=== PATIENT | female | born 1980 | race Caucasian/White ===

== ENCOUNTER → 2016-06-29 | Outpatient (CLI) | payer OTHER, MEDICAID ==
[~2016-06-29] MED LIST: ACET50TA PO; IBUP80TA PO; LEVO25TA5 PO; PRENTAB52 PO
[2016-06-29 13:34] LABS: BASO # 0.1 K/mm3 (0.0-0.2); BASO % 0.5 % (0.0-1.0); EOS # 0.4 K/mm3 (0.0-0.50); EOS % 3.3 % (0.0-3.0); LARGE UNSTAINED CELL # 0.2 K/mm3 (0.0-0.4); LARGE UNSTAINED CELL % 1.4 % (0.0-4.0); LYMPH # 3.3 K/mm3 (1.5-4.5); LYMPH % 24.2 % (24.0-44.0); MEAN CORPUSCULAR HEMOGLOBIN 29.8 pg (27.0-33.0); MEAN CORPUSCULAR HGB CONC 31.6 g/dl (32.0-36.5); MEAN CORPUSCULAR VOLUME 94.3 fl (80.0-96.0); MONO # 0.7 K/mm3 (0.0-0.8); MONO % 4.8 % (0.0-5.0); NEUTROPHILS # 9.1 K/mm3 (1.8-7.7); NEUTROPHILS % 65.7 % (36.0-66.0); PLATELET COUNT, AUTOMATED 376 k/mm3 (150-450); RED CELL DISTRIBUTION WIDTH 13.5 % (11.5-14.5); WHITE BLOOD COUNT 13.8 K/mm3 (4.0-10.0)
[2016-06-29 13:57] LABS: HBsAg Prenatal NEGATIVE (NEGATIVE)
[2016-06-29 14:37] LABS: CONTROL LINE INT CTR LINE PRESENT; HIV SCRN NEGATIVE (NEGATIVE); HIV SCRN1 NEGATIVE (NEGATIVE)
== END ==
LOC: M SMT 09:28
PROVIDERS: ATTEND Specialist
DX: Z34.81 Encounter for supervision of other normal pregnancy, first trimester (principal)

== ENCOUNTER → 2016-07-16 | Outpatient (REF) | payer OTHER, MEDICAID | LOC: M LAB REF 17:08 | PROVIDERS: ATTEND Specialist | DX: Z34.82 Encounter for supervision of other normal pregnancy, second trimester (principal) ==

== ENCOUNTER → 2016-08-15 | Outpatient (CLI) | payer OTHER, MEDICAID ==
[2016-08-15 19:01] LABS: MEAN CORPUSCULAR HEMOGLOBIN 31.2 pg (27.0-33.0); MEAN CORPUSCULAR HGB CONC 32.9 g/dl (32.0-36.5); MEAN CORPUSCULAR VOLUME 94.9 fl (80.0-96.0); RED CELL DISTRIBUTION WIDTH 13.1 % (11.5-14.5); WHITE BLOOD COUNT 14.4 K/mm3 (4.0-10.0)
[2016-08-15 19:08] LABS: ALT/SGPT 17 U/L (12-78); AST/SGOT 9 U/L (15-37); BILIRUBIN,TOTAL 0.2 MG/DL (0.2-1.0); CREATININE FOR GFR 0.65 MG/DL (0.55-1.02); GLOMERULAR FILTRATION RATE > 60.0 (>60); URIC ACID 3.6 MG/DL (2.6-6.0)
[2016-08-15 20:01] LABS: CREATININE CLEARANCE, URINE 144.8 ML/MIN (75-115); CREATININE, SERUM 0.7 MG/DL (0.6-1.0)
== END ==
LOC: M WUC 12:28
PROVIDERS: ATTEND Advanced Practice Midwife
DX: Z34.81 Encounter for supervision of other normal pregnancy, first trimester (principal)

== ENCOUNTER → 2016-09-15 | Outpatient (CLI) | payer OTHER, MEDICAID ==
[2016-09-15 14:08] LABS: ALBUMIN 3.3 GM/DL (3.2-5.2); ALKALINE PHOSPHATASE 81 U/L (45-117); ALT/SGPT 13 U/L (12-78); AST/SGOT 13 U/L (15-37); BILIRUBIN,DIRECT < 0.1 MG/DL (0.0-0.2); BILIRUBIN,TOTAL 0.2 MG/DL (0.2-1.0); TOTAL PROTEIN 6.3 GM/DL (6.4-8.2)
== END ==
LOC: M SMT 09:35
PROVIDERS: ATTEND Advanced Practice Midwife
DX: R21 Rash and other nonspecific skin eruption (principal)

== ENCOUNTER → 2016-10-08 | Outpatient (CLI) | payer OTHER, MEDICAID ==
--- NOTE | 2016-10-09 05:57 | REP ---
Clinical: Anatomical evaluation. Comparison: None . Findings: Examination demonstrates a single live intrauterine in breech presentation. motion is identified by technologist. Placenta is noted anteriorly and grade zero without evidence for placenta previa or abruption; a posterior succenturiate lobe cannot be excluded. Amniotic fluid volume is normal. Cervix measures 4.1 cm in length and appears closed. No evidence for nuchal cord. Gestational age by LMP 18 weeks 4 days with PIO 03/07/2017 . Gestational age by current measurements 19 weeks 6 days with PIO 02/26/2017 . FHR equals 139 beats per minute. BPD 4.8 cm 20 weeks 4 days HC 17.7 cm 20 weeks 1 day AC 14.3 cm 19 weeks 4 days FL 3.2 cm 19 weeks 6 days HL 3.2 cm 20 weeks 5 days HC/AC ratio 1.24 Estimated weight 315 grams ( 96 percentile). Anatomical assessment demonstrates normal structures including cranium, choroid plexus, cavum, cerebellum/posterior fossa, facial features, lungs, diaphragm, stomach, cord insertion/three-vessel cord, bladder, and extremities. Limited evaluation of the heart, kidneys and spine noted. Impression: 1. Single live intrauterine in breech presentation demonstrating appropriate interval growth. 2. Anatomical limitations as described above may warrant reevaluation and follow-up. 3. Possible small posterior succenturiate lobe. Signed by Demetri Mitchell MD 10/09/2016 05:49 A
== END ==
LOC: M RAD 17:36
PROVIDERS: ATTEND Advanced Practice Midwife
DX: Z34.82 Encounter for supervision of other normal pregnancy, second trimester (principal); Z3A.18 18 weeks gestation of pregnancy

== ENCOUNTER → 2016-10-30 | Outpatient (CLI) | payer OTHER, MEDICAID ==
--- NOTE | 2016-10-30 12:37 | REP ---
ultrasound for follow-up of anatomy: A prior anatomy ultrasound dated 10/08 2016 did not adequately demonstrate the heart, kidneys or spine. Follow-up of these structures was performed on the study today. There is a single intrauterine gestation in a transverse lie with the head to the maternal left. There is motion and cardiac activity with the heart rate of 140 4 beats per minute. Placenta is anterior without previa or abruptio and is grade zero maturity. Subjectively amniotic fluid volume is normal. The cervix measures 4.9 cm length. By today's ultrasound the gestational age is 23 weeks 0 days with an PIO of 02/22/2017. Based on the first ultrasound this gestation gestational age is 23 weeks 0 days. weight is 561 grams (1 pound, 3 ounces). This is the 94th percentile for 21 weeks 5 days. On the study today the kidneys and spine are adequately demonstrated and are unremarkable. We are again unable to adequately demonstrate the four-chamber view of the heart. The cardiac right and left ventricular outflow tracts are imaged and are unremarkable. Signed by Mukund Duncan MD 10/30/2016 12:28 P
== END ==
LOC: M RAD 09:14
PROVIDERS: ATTEND Advanced Practice Midwife
DX: Z36 Encounter for antenatal screening of mother (principal)

== ENCOUNTER → 2016-11-30 | Outpatient (CLI) | payer OTHER, MEDICAID ==
[~2016-11-30] MED LIST changes: +GLYB25TA PO; +IBUP-1114 PO
[2016-11-30 14:44] LABS: MEAN CORPUSCULAR HEMOGLOBIN 31.2 pg (27.0-33.0); MEAN CORPUSCULAR HGB CONC 33.2 g/dl (32.0-36.5); MEAN CORPUSCULAR VOLUME 94.2 fl (80.0-96.0); RED CELL DISTRIBUTION WIDTH 14.1 % (11.5-14.5); WHITE BLOOD COUNT 12.8 K/mm3 (4.0-10.0)
--- NOTE | 2016-11-30 14:44 | REP ---
Clinical: Anatomical evaluation. Comparison: 10/30/2016 . Findings: Examination demonstrates a single live intrauterine in cephalic presentation. motion is identified by technologist. Placenta is noted the anterior and grade one without evidence for placenta previa or abruption. Amniotic fluid volume is normal. Cervix measures 4.5 cm in length and appears closed. No evidence for nuchal cord. Gestational age by LMP 26 weeks 1 day with PIO 03/07/2017 . Gestational age by current measurements 27 weeks 6 days with PIO 02/23/2017 . FHR equals 147 beats per minute. BPD 6.9 cm 27 weeks 5 days HC 25.6 cm 27 weeks 5 days AC 23.4 cm 27 weeks 5 days FL 5.0 cm 27 weeks 0 days HL 4.9 cm 28 weeks 5 days HC/AC ratio 1.09 Estimated weight 1082 grams ( 81st percentile). Anatomical assessment demonstrates normal structures including cranium, choroid plexus, cavum, cerebellum/posterior fossa, lungs, diaphragm, stomach, cord insertion/three-vessel cord, kidneys/bladder, spine, and extremities. Impression: Single live intrauterine in cephalic presentation demonstrating appropriate interval growth. With the exception of the four-chamber heart, anatomical assessment is complete and normal. Signed by Demetri Mitchell MD 11/30/2016 02:35 P
== END ==
LOC: M LAB 12:11
PROVIDERS: ATTEND Advanced Practice Midwife
DX: Z34.82 Encounter for supervision of other normal pregnancy, second trimester (principal)

== ENCOUNTER → 2016-12-10 | Outpatient (CLI) | payer OTHER, MEDICAID | LOC: M LAB 06:39 | PROVIDERS: ATTEND Advanced Practice Midwife | DX: Z34.82 Encounter for supervision of other normal pregnancy, second trimester (principal) ==

== ENCOUNTER → 2016-12-30 | Outpatient (CLI) | payer OTHER, MEDICAID ==
--- NOTE | 2016-12-31 06:26 | REP ---
Clinical: Growth evaluation. Additional diabetes. Comparison: 11/30/2016 . Findings: Examination demonstrates a single live intrauterine in cephalic presentation. motion is identified by technologist. Placenta is noted anteriorly and grade III without evidence for placenta previa or abruption. Suggestions for right lateral succenturiate lobe described by technologist. Amniotic fluid volume is normal. Cervix measures 6.1 cm in length and appears closed. No evidence for nuchal cord. Gestational age by LMP 30 weeks 3 days with PIO 03/07/2017 . Gestational age by current measurements 32 weeks 6 days with PIO 02/18/2017 . FHR equals 140 beats per minute. Estimated weight 2128 grams ( > 97% based on age by LMP ). Amniotic fluid index equals 20.0 cm. Umbilical cord SD ratio equals 3.04. Impression: 1. Single live intrauterine in cephalic presentation. 2. Estimated weight based on age by LMP is greater than 97 percentile and warrants further evaluation. 3. Cannot exclude right lateral succenturiate lobe. Signed by Demetri Mitchell MD 12/31/2016 06:18 A
== END ==
LOC: M RAD 09:09
PROVIDERS: ATTEND Advanced Practice Midwife
DX: Z36 Encounter for antenatal screening of mother (principal); Z3A.32 32 weeks gestation of pregnancy; O24.415 Gestational diabetes mellitus in pregnancy, controlled by oral hypoglycemic drugs

== ENCOUNTER → 2017-01-21 | Outpatient (CLI) | payer OTHER, MEDICAID ==
--- NOTE | 2017-01-21 14:59 | REP ---
OB ULTRASOUND: Real-time sonographic evaluation of the gravid uterus is performed utilizing transabdominal technique. There is single living intrauterine gestation, estimated gestational age 33 weeks 4 days, EDC 03/07/2017. Today's measurements indicate appropriate growth. Biometry and Growth: BPD 86 mm = 34 weeks 4 days, 65th percentile HC 309 mm = 34 weeks 3 days, 63rd percentile AC 311 mm = 35 weeks 0 days, 71st percentile FL 65 mm = 33 weeks 3 days, 47th percentile HC/AC ratio 0.99 within normal range. Estimated weight 2445 grams 63rd percentile. SEEN/GROSSLY UNREMARKABLE Lateral ventricles Yes Posterior fossa Yes Upper lip Yes Four-chamber heart No LVOT No RVOT No Stomach Yes Cord insertion No Three vessel cord Yes Kidneys Yes Bladder Yes Spine No Cervical length: Closed and measures 3.5 cm in length. heart rate: 138 beats per minute. position: Vertex. Placenta: Anterior and grade 3 with no previa or abruption. Suspect a posterior right succenturiate lobe of the placenta. Amniotic fluid: Within normal limits. PAO 14.8 within normal range of 8.2 to 24.7. S/D ratio 2.55 is within normal range. RI 0.61 is within normal range. Signed by Mukund Go MD 01/21/2017 03:19 P
== END ==
LOC: M RAD 11:23
PROVIDERS: ATTEND Advanced Practice Midwife
DX: Z36 Encounter for antenatal screening of mother (principal)

== ENCOUNTER 2017-01-29 11:31 | Outpatient (CLI) | payer OTHER, MEDICAID ==
[~2017-01-29] VITALS: Ht 152.4 cm; Wt 85.0 kg
[~2017-01-29 11:31] MED LIST changes: -GLYB25TA PO; -IBUP-1114 PO
[2017-01-29] MEDS ORDERED: LR 1,000 ML IV SCH (15:54)
[2017-01-29] MEDS ORDERED: LACTATED RINGER'S 1000 ML IV STA (15:54)
[2017-01-29 16:51] LABS: MEAN CORPUSCULAR HEMOGLOBIN 29.5 pg (27.0-33.0); MEAN CORPUSCULAR HGB CONC 33.7 g/dl (32.0-36.5); MEAN CORPUSCULAR VOLUME 87.6 fl (80.0-96.0); RED CELL DISTRIBUTION WIDTH 14.6 % (11.5-14.5); WHITE BLOOD COUNT 14.5 K/mm3 (4.0-10.0)
[2017-01-29 17:07] LABS: INR 0.86
== END 2017-01-29 18:11 | disposition home or self-care (01) ==
LOC: M LDO 11:31
PROVIDERS: ATTEND Obstetrics & Gynecology
DX: O99.89 Other specified diseases and conditions complicating pregnancy, childbirth and the puerperium (principal); W19.XXXA Unspecified fall, initial encounter; Z3A.34 34 weeks gestation of pregnancy; O24.415 Gestational diabetes mellitus in pregnancy, controlled by oral hypoglycemic drugs; Z88.5 Allergy status to narcotic agent; Z91.010 Allergy to peanuts; Z88.0 Allergy status to penicillin; Z91.018 Allergy to other foods; X58.XXXA Exposure to other specified factors, initial encounter; Y93.9 Activity, unspecified; Y92.9 Unspecified place or not applicable; Y99.8 Other external cause status

== ENCOUNTER 2017-02-03 16:38 | Inpatient (IN) | payer OTHER, MEDICAID ==
[2017-02-03] VITALS (9 sets, daily range): BP systolic 117–144; BP diastolic 62–100
[~2017-02-03] VITALS: Ht 154.9 cm; Wt 88.0 kg
[2017-02-03] MEDS ORDERED: GLYB25TA PO (16:59)
[2017-02-03] MEDS: BETAMETHASONE SOLUSPAN 6MG/ML INJ 5ML (J0702) IM SCH (17:55)
[2017-02-03 18:10] LABS: MEAN CORPUSCULAR HEMOGLOBIN 29.6 pg (27.0-33.0); MEAN CORPUSCULAR HGB CONC 33.8 g/dl (32.0-36.5); MEAN CORPUSCULAR VOLUME 87.6 fl (80.0-96.0); RED CELL DISTRIBUTION WIDTH 14.6 % (11.5-14.5); WHITE BLOOD COUNT 12.2 K/mm3 (4.0-10.0)
[2017-02-03 18:32] LABS: ALT/SGPT 16 U/L (12-78); AST/SGOT 19 U/L (15-37); BILIRUBIN,TOTAL 0.3 MG/DL (0.2-1.0); CREATININE FOR GFR 0.57 MG/DL (0.55-1.02); GLOMERULAR FILTRATION RATE > 60.0 (>60); URIC ACID 6.1 MG/DL (2.6-6.0)
--- NOTE | 2017-02-03 19:17 | HPE ---
DATE OF ADMISSION: 02/03/2017 Ladi is a 37-year-old 2, para 1-0-1-1 at 35-3/7 weeks gestation with an estimated date of confinement (EDC) of 03/07/2017 based on first trimester ultrasound. She presents to labor and delivery today after routine appointment in the office and was noted to have an elevated blood pressure and a complaint of a mild headache. She does deny epigastric pain and right upper quadrant pain as well as blurred vision. She does report some visual floaters. She denies vaginal bleeding, leakage of fluid, and regular painful contractions. Her fetus has been active. Her care was initiated at [facility] in the first trimester. course complicated by a history of pre-eclampsia, a history of gestational diabetes, A2, and a right succenturiate lobe noted on the placenta. OBSTETRICAL HISTORY: September 2014 at 38 weeks gestation she had a spontaneous vaginal delivery following an induction for pre-eclampsia at 38 weeks gestation of a 7-pound 6-ounce male. OBSTETRIC LABORATORIES: Blood type O positive, antibody screen negative, rubella immune, VDRL nonreactive. Urine culture no growth. Hepatitis B surface antigen negative, HIV negative, hepatitis C antibody negative, gonorrhea and chlamydia negative. Early 1-hour glucose tolerance test 97, repeat 164, 3-hour glucose tolerance test abnormal, fasting 95, 1-hour 185, 2-hour 178, 3-hour 114. Her group B streptococcus (GBS) is unknown at this time. She did undergo some baseline lab work for pre-eclampsia. A 24-hour urine on August 15 was 218.7 mg with normal AST, ALT, LDH. Uric acid was 3.6. PAST MEDICAL HISTORY: 1. Exercise-induced asthma. 2. Seasonal allergies. 3. Childhood varicella. FAMILY HISTORY: Diabetes, hypertension, heart disease, thyroid dysfunction, autism, vision issues. SURGERIES: 1. Appendectomy. 2. Tonsils and adenoids. 3. Kidney stone surgery. SOCIAL HISTORY: The patient is single; however, her partner is at bedside and supportive. She is a nonsmoker. Denies alcohol and drug use. No history of any sexually transmitted infections and denies history of abuse, physical, sexual, and emotional. ALLERGIES: Seasonal, CODEINE which causes hives, PENICILLIN, anaphylaxis. CURRENT MEDICATIONS: - glyburide 2.5 mg - vitamin - Claritin 10 mg OBJECTIVE: Temperature 98.1, pulse 76, respirations 16, blood pressures are mildly elevated at 130/100, 136/83, 139/89, 139/94, 132/70, 152/69. She is alert and oriented times three. No apparent distress, smiling and talkative. heart rate is 130 with moderate variability, positive accelerations observed. No decelerations observed. Her abdomen is gravid, cephalic presentation, which was confirmed by bedside ultrasound. Estimated weight of about 6 pounds. She is [place] approximately every 5-8 minutes. Sterile vaginal exam was deferred at this time. Her CBC came back with a hemoglobin of 11.5, hematocrit 34.1, platelets are 188. Pre-eclamptic profile: Creatinine 0.57, uric acid 6.1. AST 19, ALT 16. LDH 205. Her spot urine returned a result of 0.48. ASSESSMENT: Intrauterine at 35-3/7 weeks gestation. heart rate category 1 . Gestational hypertension. PLAN: Per consult with Dr. Jeremiah Degroot, admit the patient to labor and delivery. Betamethasone for lung maturity. GBS was obtained. Regular diet. Bathroom privileges. Saline lock. Will continue to observe the patient, monitor blood pressures overnight. Planned second betamethasone at 24 hours as ordered. Will consider at 12 hours if blood pressures become elevated requiring intervention. Potential for induction of labor following second betamethasone due to the patient's history of pre-eclampsia and diagnosis of gestational hypertension. I did review the plan with the patient. All of her questions were answered, and she does agree with the plan.
[2017-02-03] MEDS: ACETAMINOPHEN 500 MG TAB PO PRN (19:39)
[2017-02-03] MEDS ORDERED: glyBURIDE 2.5 MG TAB PO STA (19:47)
[2017-02-04] VITALS (38 sets, daily range): BP systolic 106–160; BP diastolic 54–92
[2017-02-04] MEDS: ACETAMINOPHEN 500 MG TAB PO PRN (05:25)
[2017-02-04] MEDS: DOCUSATE SODIUM 100 MG CAP PO PRN ×2 (06:24→21:48)
[2017-02-04] MEDS ORDERED: glyBURIDE 2.5 MG TAB PO SCH ×2 (08:15→17:30)
[2017-02-04] MEDS: BETAMETHASONE SOLUSPAN 6MG/ML INJ 5ML (J0702) IM SCH (17:44)
[2017-02-04] MEDS ORDERED: OXYTOCIN DRIP 30 UNITS in APPROPRIATE DILUENT 1 EA IV SCH (18:45)
[2017-02-04 19:37] LABS: MEAN CORPUSCULAR HEMOGLOBIN 28.8 pg (27.0-33.0); MEAN CORPUSCULAR HGB CONC 32.4 g/dl (32.0-36.5); MEAN CORPUSCULAR VOLUME 89.1 fl (80.0-96.0); RED CELL DISTRIBUTION WIDTH 14.8 % (11.5-14.5); WHITE BLOOD COUNT 17.7 K/mm3 (4.0-10.0)
[2017-02-04 19:46] LABS: ALBUMIN 2.5 GM/DL (3.2-5.2); ALBUMIN/GLOBULIN RATIO 0.83 (1.00-1.93); ALKALINE PHOSPHATASE 245 U/L (45-117); ALT/SGPT 18 U/L (12-78); ANION GAP 14 MEQ/L (8-16); AST/SGOT 16 U/L (15-37); BILIRUBIN,TOTAL 0.3 MG/DL (0.2-1.0); BLOOD UREA NITROGEN 15 MG/DL (7-18); CALCIUM LEVEL 8.8 MG/DL (8.5-10.1); CARBON DIOXIDE LEVEL 18 MEQ/L (21-32); CHLORIDE LEVEL 111 MEQ/L (98-107); CREATININE FOR GFR 0.66 MG/DL (0.55-1.02); GLOMERULAR FILTRATION RATE > 60.0 (>60); GLUCOSE, FASTING 124 MG/DL (70-105); POTASSIUM SERUM 4.2 MEQ/L (3.5-5.1); SODIUM LEVEL 143 MEQ/L (136-145); TOTAL PROTEIN 5.5 GM/DL (6.4-8.2); URIC ACID 6.1 MG/DL (2.6-6.0)
[2017-02-04] MEDS ORDERED: FENTANYL 2MCG/ML ROPIVACAINE 0.2% IN 0.9% NACL 200ML IVBAG As Ordered ONE (22:24)
[2017-02-04] MEDS ORDERED: diphenhydrAMINE INJ 50MG/ML VIAL (J1200) IV PRN (23:50)
[2017-02-04] MEDS ORDERED: REFRIGERATOR IV KEYS XX PRN (23:50)
[2017-02-04] MEDS ORDERED: FENTANYL/ROPIVACAINE/NACL BAG 200 ML EPIDURAL SCH (23:50)
[2017-02-04] MEDS ORDERED: NALOXONE INJ 0.4 MG/1 ML VIAL (J2310) IV PRN (23:50)
[2017-02-04] MEDS ORDERED: LACTATED RINGER'S 1000 ML IV PRN (23:50)
[2017-02-04] MEDS ORDERED: ONDANSETRON 4MG/2ML VIAL (J2405) IV PRN (23:50)
[2017-02-04] MEDS ORDERED: EPIDURAL/PCA KEYS XX PRN (23:50)
[2017-02-04] MEDS ORDERED: ePHEDrine SULFATE 25 MG/5 ML(5MG/ML) SYRINGE IV PRN (23:50)
[2017-02-04] MEDS ORDERED: EPIDURAL COMMENT XX SCH (23:50)
[2017-02-05] VITALS (49 sets, daily range): BP systolic 70–145; BP diastolic 35–81
[2017-02-05] MEDS: ACETAMINOPHEN 500 MG TAB PO PRN ×3 (02:31→19:29)
[2017-02-05] MEDS: ceFAZolin SOD 1 GM in D5W MINI-BAG PLUS 50 ML IV SCH ×2 (03:42→11:42)
[2017-02-05] MEDS: PRENATAL VITAMINS CHEWABLE TABLET PO SCH (09:00)
[2017-02-05] MEDS: DOCUSATE SODIUM 100 MG CAP PO PRN (09:53)
[2017-02-05] MEDS ORDERED: RHOGAM 300 MCG (1500 IU) INJ (J2790) IM SCH (14:15)
[2017-02-05] MEDS ORDERED: MOM 30ML SUSPENSION UDC PO PRN (14:15)
[2017-02-05] MEDS ORDERED: ANUSOL HC CREAM 30GM TOP PRN (14:15)
[2017-02-05] MEDS ORDERED: METHYLERGONOVINE MALEATE 0.2 MG TAB PO PRN (14:15)
[2017-02-05] MEDS ORDERED: MEASLES,MUMPS,RUBELLA VACCINE INJ (MMR-II) (90707) SC SCH (14:15)
[2017-02-05] MEDS ORDERED: DIBUCAINE 1% OINTMENT 30GM TOP PRN (14:15)
[2017-02-05 14:39] LABS: CORD GAS ABE V -4.3; CORD GAS HCO3 V 20.7 MEQ/L; CORD GAS O2 SAT V 77.5 %; CORD GAS PCO2 V 37.6 mmHg; CORD GAS PH V 7.358 UNITS; CORD GAS PO2 V 32.1 mmHg; CORD GAS SBC V 20.5 MEQ/L; CORD GAS TCO2 V 21.8 MEQ/L
[2017-02-05] MEDS ORDERED: miSOPROStol 200 MCG TAB (S0191) PR ONE (15:30)
[2017-02-05] MEDS: IBUPROFEN 800 MG TAB PO PRN (15:39)
--- NOTE | 2017-02-05 16:00 | DN ---
DATE: 02/05/2017 Induction of labor for pre-eclampsia and GDMA2. treated with Ancef for unknown group B streptococcus. Utilized epidural for labor coping. Pitocin induction of labor. Artificial rupture of membranes, clear fluid 0913. Fully dilated with strong bearing down efforts at 1318. Viable male delivered right occiput anterior (MAXIMUS) without difficulty at 13,27. Spontaneous respirations with stimulation. Transitioned on maternal abdomen. Cord doubly clamped and cut by father of the baby once pulsations ceased under my direction. scores were 8 and 8. Cord gases were obtained. Results are pending. Placenta Potter, intact with three-vessel cord at 1335. Succenturiate lobe was noted and intact. Fundus firmed with massage and IV Pitocin bolus. Estimated blood loss 50 mL. Perineum, cervix, and vagina inspected, intact. Sponge, sharp, and instrument count correct. weight 2782 grams, 6 pounds 2 ounces. Parents are naming their son Doc. was attended by Waleska Bolden, ATUL, and myself. ANNEMARIE
[2017-02-05] MEDS: DOCUSATE SODIUM 100 MG CAP PO SCH (19:28)
[2017-02-06] MEDS: IBUPROFEN 800 MG TAB PO PRN ×2 (02:07→16:17)
[2017-02-06 02:15] VITALS: BP 125/83
[2017-02-06 05:30] VITALS: BP 133/66
[2017-02-06] MEDS: ACETAMINOPHEN 500 MG TAB PO PRN (06:17)
[2017-02-06] MEDS: DOCUSATE SODIUM 100 MG CAP PO SCH ×2 (09:00→20:31)
[2017-02-06] MEDS: PRENATAL VITAMINS CHEWABLE TABLET PO SCH (09:00)
[2017-02-06 10:15] VITALS: BP 124/67
[2017-02-06 14:04] VITALS: BP 130/69
[2017-02-06 18:03] VITALS: BP 130/76
[2017-02-06 22:35] VITALS: BP 133/63
[2017-02-07 02:10] VITALS: BP 135/67
[2017-02-07] MEDS: IBUPROFEN 800 MG TAB PO PRN (02:59)
[2017-02-07] MEDS: ACETAMINOPHEN 500 MG TAB PO PRN (04:56)
[2017-02-07 05:35] VITALS: BP 135/78
[2017-02-07] MEDS ORDERED: IBUP-1114 PO (07:27)
[2017-02-07] MEDS ORDERED: ACET50TA PO (07:27)
[2017-02-07] MEDS: DOCUSATE SODIUM 100 MG CAP PO SCH (08:10)
[2017-02-07] MEDS: PRENATAL VITAMINS CHEWABLE TABLET PO SCH (08:10)
[2017-02-07 10:00] VITALS: BP 131/71
== END 2017-02-07 12:30 | disposition home or self-care (01) | DRG 775 ==
LOC: M LDI 16:38 → M OBS 02-05 16:22
PROVIDERS: ADMIT Advanced Practice Midwife; ATTEND Advanced Practice Midwife
PROC: 3E033VJ Introduction of Other Hormone into Peripheral Vein, Percutaneous Approach (ICD-10-PCS; 2017-02-03)
PROC: 10E0XZZ Delivery of Products of Conception, External Approach (ICD-10-PCS; principal; 2017-02-05)
PROC: 10907ZC Drainage of Amniotic Fluid, Therapeutic from Products of Conception, Via Natural or Artificial Opening (ICD-10-PCS; 2017-02-05)
DX: O14.14 Severe pre-eclampsia complicating childbirth (principal); Z37.0 Single live birth; Z3A.35 35 weeks gestation of pregnancy; O43.193 Other malformation of placenta, third trimester; O09.523 Supervision of elderly multigravida, third trimester

== ENCOUNTER → 2017-03-18 | Outpatient (CLI) | payer OTHER, MEDICAID ==
[~2017-03-18] MED LIST changes: +GLYB25TA PO; +IBUP-1114 PO
== END ==
LOC: M LAB 07:22
PROVIDERS: ATTEND Advanced Practice Midwife
DX: O24.415 Gestational diabetes mellitus in pregnancy, controlled by oral hypoglycemic drugs (principal)

== ENCOUNTER 2017-08-18 16:32 | Emergency (ER) | payer OTHER, MEDICAID ==
[2017-08-18] MEDS: KETOROLAC 60 MG/2 ML VIAL (J1885) IM (18:52)
== END 2017-08-18 19:25 | disposition home or self-care (01) ==
LOC: M ED 16:32
DX: S13.9XXA Sprain of joints and ligaments of unspecified parts of neck, initial encounter (principal); S43.402A Unspecified sprain of left shoulder joint, initial encounter; M25.512 Pain in left shoulder; X50.0XXA Overexertion from strenuous movement or load, initial encounter; Y92.89 Other specified places as the place of occurrence of the external cause; I10 Essential (primary) hypertension; M19.90 Unspecified osteoarthritis, unspecified site; Z87.442 Personal history of urinary calculi; Z88.0 Allergy status to penicillin; Z88.5 Allergy status to narcotic agent; Z91.010 Allergy to peanuts; Z91.018 Allergy to other foods; Z79.899 Other long term (current) drug therapy
CPT/HCPCS: J1885

== ENCOUNTER → 2018-06-19 | Outpatient (REF) | payer OTHER, MEDICAID ==
[~2018-06-19] MED LIST changes: -ACET50TA PO; +DICL75TA PO; +HUMI40KI2; +MAPA500T2 PO; +MULT1TAB18 PO; +ZANA4TAB PO
== END ==
LOC: M SFHCLERA 14:58
PROVIDERS: ATTEND Physician Assistant
DX: R10.9 Unspecified abdominal pain (principal)

== ENCOUNTER → 2018-07-05 | Outpatient (REF) | payer OTHER, MEDICAID | LOC: M SFHCLERA 20:19 | PROVIDERS: ATTEND Nurse Practitioner Family | DX: J02.9 Acute pharyngitis, unspecified (principal) ==

== ENCOUNTER → 2018-09-28 | Outpatient (REF) | payer OTHER, MEDICAID | LOC: M SFHCLERA 11:21 | PROVIDERS: ATTEND Physician Assistant | DX: R50.9 Fever, unspecified (principal) ==

== ENCOUNTER 2018-12-17 21:06 | Emergency (ER) | payer OTHER, MEDICAID ==
[~2018-12-17] VITALS: Ht 154.9 cm; Wt 95.5 kg
[2018-12-17] MEDS ORDERED: AMIT10TA (21:18)
[2018-12-17] MEDS ORDERED: IBUP80TA (21:18)
[2018-12-17] MEDS ORDERED: TOPI100T9 (21:18)
[2018-12-17] MEDS ORDERED: ZOLM5TAB2 (21:18)
[2018-12-17 21:43] LABS: HEMATOCRIT 41.6 % (36.0-47.0); HEMOGLOBIN 13.5 g/dl (12.0-15.5); MEAN CORPUSCULAR HGB CONC 32.5 g/dl (32.0-36.5); MEAN CORPUSCULAR VOLUME 95.6 fl (80.0-96.0); PLATELET COUNT, AUTOMATED 349 10^3/uL (150-450); RED BLOOD COUNT 4.35 10^6/uL (4.00-5.40)
[2018-12-17 21:48] LABS: WHITE BLOOD COUNT 13.8 10^3/uL (4.0-10.0)
[2018-12-17 22:08] LABS: HCG, SERUM QUALITATIVE NEGATIVE (NEGATIVE)
[2018-12-17 22:12] LABS: BASOPHILS 1 % (0-4); EOSINOPHILS 2 % (0-5); LYMPHOCYTES 46 % (16-52); MONOCYTES 4 % (0-8); NEUTROPHILS 47 % (35-75)
[2018-12-17 22:13] LABS: PLATELET ESTIMATE NORMAL (NORMAL)
[2018-12-17 22:15] LABS: ALBUMIN 3.8 GM/DL (3.2-5.2); ALT/SGPT 17 U/L (12-78); BILIRUBIN,DIRECT < 0.1 MG/DL (0.0-0.2); BILIRUBIN,TOTAL 0.3 MG/DL (0.2-1.0); BLOOD UREA NITROGEN 13 MG/DL (7-18); CALCIUM LEVEL 8.8 MG/DL (8.5-10.1); CARBON DIOXIDE LEVEL 25 MEQ/L (21-32); CHLORIDE LEVEL 109 MEQ/L (98-107); CREATININE FOR GFR 0.93 MG/DL (0.55-1.30); GLOMERULAR FILTRATION RATE > 60.0 (>60); GLUCOSE, FASTING 107 MG/DL (70-100); LIPASE 180 U/L (73-393); POTASSIUM SERUM 3.7 MEQ/L (3.5-5.1); SODIUM LEVEL 143 MEQ/L (136-145); TOTAL PROTEIN 7.3 GM/DL (6.4-8.2)
[2018-12-17] MEDS ORDERED: KETOROLAC 30 MG/ML VIAL (J1885) IV ONE (23:00)
--- NOTE | 2018-12-18 00:28 | REPVR ---
EXAM: CT Abdomen and Pelvis Without Contrast EXAM DATE/TIME: 12/17/2018 10:56 PM CLINICAL HISTORY: 38 years old, female; Abdominal pain; Flank; Right; Additional info: R flank pain, R/O stone TECHNIQUE: Imaging protocol: Axial computed tomography images of the abdomen and pelvis without contrast. Coronal and sagittal reformatted images were created and reviewed. Radiation optimization: All CT scans at this facility use at least one of these dose optimization techniques: automated exposure control; mA and/or kV adjustment per patient size (includes targeted exams where dose is matched to clinical indication); or iterative reconstruction. COMPARISON: CT ABD PELVIS W/O CONTRAST 05/04/2016 12:32 PM FINDINGS: Liver: Indeterminate 1.9 x 1.8 cm low-density lesion in the right hepatic lobe, likely a cyst or hemangioma. Gallbladder and bile ducts: No radiodense gallstones. No biliary ductal dilatation. Pancreas: Unremarkable. Spleen: Unremarkable. Adrenals: Unremarkable. Kidneys and ureters: Nonobstructing left renal calculus. No hydronephrosis. Stomach and bowel: Moderate amount of retained stool in the colon. No obstruction. No bowel wall thickening. No pneumatosis. Appendix: Findings suggestive of prior appendectomy. Intraperitoneal space: Trace nonspecific free pelvic fluid, likely physiologic. No organized fluid collection. No free air. Vasculature: Unremarkable. No aneurysm. Lymph nodes: No pathologically enlarged lymph nodes. Bladder: Unremarkable. Reproductive: Unremarkable. Bones/joints: No acute osseous abnormality. Soft tissues: Small, fat-containing umbilical hernia. IMPRESSION: 1. Limited noncontrast examination without CT evidence of acute intra-abdominal or pelvic pathology. 2. Additional findings, as above. Electronically signed by: Messi Guthrie On 12/18/2018 00:28:17 AM
[2018-12-18 00:57] VITALS: BP 137/83
== END 2018-12-18 00:58 | disposition home or self-care (01) ==
LOC: M ED 21:06
DX: K59.00 Constipation, unspecified (principal); K42.9 Umbilical hernia without obstruction or gangrene; K76.9 Liver disease, unspecified; N20.0 Calculus of kidney; G43.909 Migraine, unspecified, not intractable, without status migrainosus; G47.30 Sleep apnea, unspecified; Z87.442 Personal history of urinary calculi; H20.00 Unspecified acute and subacute iridocyclitis; L40.52 Psoriatic arthritis mutilans; Z79.899 Other long term (current) drug therapy; Z91.010 Allergy to peanuts; Z88.0 Allergy status to penicillin; Z88.5 Allergy status to narcotic agent
CPT/HCPCS: 74176; 80048; 80076; 81001; 83690; 84703; 85025; 99283; J1885

== ENCOUNTER → 2019-04-01 | Outpatient (REF) | payer BC ==
[~2019-04-01] MED LIST changes: +AMIT10TA; +IBUP80TA; +TOPI100T9; +ZOLM5TAB14
== END ==
LOC: M SFHCLERA 17:58
PROVIDERS: ATTEND Nurse Practitioner Family
DX: J02.9 Acute pharyngitis, unspecified (principal)

== ENCOUNTER → 2019-12-26 | Outpatient (CLI) | payer OTHER ==
[2020-01-23 02:38] LABS: BASO # 0.1 10^3/uL (0.0-0.2); BASO % 0.9 % (0.0-1.0); EOS # 0.7 10^3/uL (0.0-0.5); EOS % 5.5 % (0.0-3.0); HEMATOCRIT 43.4 % (36.0-47.0); HEMOGLOBIN 13.6 g/dl (12.0-15.5); LYMPH # 5.1 10^3/uL (1.5-5.0); LYMPH % 41.8 % (24.0-44.0); MEAN CORPUSCULAR HEMOGLOBIN 29.6 pg (27.0-33.0); MEAN CORPUSCULAR HGB CONC 31.3 g/dl (32.0-36.5); MEAN CORPUSCULAR VOLUME 94.6 fl (80.0-96.0); MONO # 0.7 10^3/uL (0.0-0.8); NEUTROPHILS # 5.5 10^3/uL (1.5-8.5); NEUTROPHILS % 45.3 % (36.0-66.0); PLATELET COUNT, AUTOMATED 335 10^3/uL (150-450); RED BLOOD COUNT 4.59 10^6/uL (4.00-5.40); WHITE BLOOD COUNT 12.1 10^3/uL (4.0-10.0)
[2020-03-18 14:09] LABS: GLUCOSE, FASTING SEE SEPARATE REPORT
== END ==
LOC: M LAB 07:13
PROVIDERS: ATTEND Nurse Practitioner Family
DX: L40.59 Other psoriatic arthropathy (principal)

== ENCOUNTER → 2020-01-12 | Outpatient (CLI) | payer OTHER ==
[2020-02-29 22:01] LABS: BASO # 0.2 10^3/uL (0.0-0.2); BASO % 0.8 % (0.0-1.0); EOS # 0.4 10^3/uL (0.0-0.5); EOS % 2.1 % (0.0-3.0); HEMATOCRIT 41.9 % (36.0-47.0); HEMOGLOBIN 13.4 g/dl (12.0-15.5); LYMPH % 36.6 % (24.0-44.0); MONO # 1.3 10^3/uL (0.0-0.8); MONO % 6.5 % (0.0-5.0); NEUTROPHILS # 9.9 10^3/uL (1.5-8.5); NEUTROPHILS % 51.9 % (36.0-66.0); PLATELET COUNT, AUTOMATED 368 10^3/uL (150-450); RED BLOOD COUNT 4.32 10^6/uL (4.00-5.40); WHITE BLOOD COUNT 19.2 10^3/uL (4.0-10.0)
[2020-03-10 23:32] LABS: CALCIUM LEVEL 9.9 MG/DL (8.5-10.1); CREATININE FOR GFR 1.09 MG/DL (0.55-1.30); GLOMERULAR FILTRATION RATE 59.8 (>60); POTASSIUM SERUM 4.3 MEQ/L (3.5-5.1)
== END ==
LOC: M LAB 09:20
PROVIDERS: ATTEND Nurse Practitioner Family
DX: L40.59 Other psoriatic arthropathy (principal); Z79.899 Other long term (current) drug therapy

== ENCOUNTER 2020-03-22 13:19 | Outpatient (CLI) | payer OTHER ==
[2020-03-22] VITALS (7 sets, daily range): BP systolic 132–148; BP diastolic 76–83
[~2020-03-22] VITALS: Ht 154.9 cm; Wt 103.6 kg
[~2020-03-22 13:19] MED LIST changes: +ACETAMINOPHEN TAB 650MG DOSE (2X325MG) PO PRN; +diphenhydrAMINE 50MG/ML VIAL (J1200) IV PRN; +methylPREDNISolone 125MG 2ML VIAL IV PRN
[2020-03-22] MEDS ORDERED: INFLIXIMAB BIOSIMILAR 500 MG in NS 200 ML IV ONE (13:30)
[2020-03-22 14:16] LABS: HEMOGLOBIN 13.7 g/dl (12.0-15.5); MEAN CORPUSCULAR HEMOGLOBIN 29.7 pg (27.0-33.0); MEAN CORPUSCULAR HGB CONC 31.9 g/dl (32.0-36.5); MEAN CORPUSCULAR VOLUME 93.3 fl (80.0-96.0); PLATELET COUNT, AUTOMATED 364 10^3/uL (150-450); RED BLOOD COUNT 4.61 10^6/uL (4.00-5.40); WHITE BLOOD COUNT 18.5 10^3/uL (4.0-10.0)
[2020-03-22 14:37] LABS: BLOOD UREA NITROGEN 18 MG/DL (7-18); CARBON DIOXIDE LEVEL 23 MEQ/L (21-32); CHLORIDE LEVEL 110 MEQ/L (98-107); CREATININE FOR GFR 1.04 MG/DL (0.55-1.30); GLOMERULAR FILTRATION RATE > 60.0 (>60); GLUCOSE, FASTING 120 MG/DL (70-100); POTASSIUM SERUM 4.1 MEQ/L (3.5-5.1); SODIUM LEVEL 139 MEQ/L (136-145)
[2020-03-22 14:38] LABS: ALBUMIN 3.8 GM/DL (3.2-5.2); ALT/SGPT 25 U/L (12-78); BILIRUBIN,TOTAL 0.2 MG/DL (0.2-1.0); CALCIUM LEVEL 9.3 MG/DL (8.5-10.1); TOTAL PROTEIN 7.1 GM/DL (6.4-8.2)
[2020-03-22 14:39] LABS: ERYTHROCYTE SEDIMENTATION RATE 9 mm/hr (0-20)
== END 2020-03-22 17:15 | disposition home or self-care (01) ==
LOC: M INFU 13:19
PROVIDERS: ATTEND Internal Medicine
DX: L40.59 Other psoriatic arthropathy (principal)
CPT/HCPCS: 36415; 80053; 85027; 85652; 86140; 96413; 96415; Q5103

== ENCOUNTER 2020-04-05 13:32 | Outpatient (CLI) | payer OTHER ==
[2020-04-05] VITALS (9 sets, daily range): BP systolic 107–140; BP diastolic 66–89
[~2020-04-05] VITALS: Ht 154.9 cm; Wt 103.4 kg
[~2020-04-05 13:32] MED LIST changes: +ACETAMINOPHEN 650MG PO PRIOR TO INFUSION PO PRN; -ACETAMINOPHEN TAB 650MG DOSE (2X325MG) PO PRN; +INFLIXIMAB BIOSIMILAR 500 MG in NS 200 ML IV ONE; +NS 1,000 ML IV SCH; +diphenhydrAMINE 25MG IV PRIOR TO INFUSION IV PRN; -diphenhydrAMINE 50MG/ML VIAL (J1200) IV PRN
[2020-04-05 14:07] LABS: HEMATOCRIT 39.3 % (36.0-47.0); HEMOGLOBIN 12.6 g/dl (12.0-15.5); MEAN CORPUSCULAR HEMOGLOBIN 30.1 pg (27.0-33.0); MEAN CORPUSCULAR HGB CONC 32.1 g/dl (32.0-36.5); PLATELET COUNT, AUTOMATED 313 10^3/uL (150-450); RED BLOOD COUNT 4.18 10^6/uL (4.00-5.40); WHITE BLOOD COUNT 11.2 10^3/uL (4.0-10.0)
[2020-04-05 14:39] LABS: ERYTHROCYTE SEDIMENTATION RATE 20 mm/hr (0-20)
[2020-04-05 14:45] LABS: ALBUMIN 3.6 GM/DL (3.2-5.2); ALT/SGPT 21 U/L (12-78); BILIRUBIN,TOTAL 0.3 MG/DL (0.2-1.0); BLOOD UREA NITROGEN 17 MG/DL (7-18); CARBON DIOXIDE LEVEL 22 MEQ/L (21-32); CHLORIDE LEVEL 111 MEQ/L (98-107); GLOMERULAR FILTRATION RATE > 60.0 (>60); GLUCOSE, FASTING 93 MG/DL (70-100); POTASSIUM SERUM 3.5 MEQ/L (3.5-5.1); SODIUM LEVEL 140 MEQ/L (136-145); TOTAL PROTEIN 6.6 GM/DL (6.4-8.2)
== END 2020-04-05 17:00 | disposition home or self-care (01) ==
LOC: M INFU 13:32
PROVIDERS: ATTEND Internal Medicine
DX: L40.59 Other psoriatic arthropathy (principal); Z88.0 Allergy status to penicillin; Z88.6 Allergy status to analgesic agent; Z91.010 Allergy to peanuts
CPT/HCPCS: 36592; 80053; 85027; 85652; 86140; 96365; 96366; Q5103

== ENCOUNTER 2020-05-03 13:43 | Outpatient (CLI) | payer OTHER ==
[~2020-05-03] VITALS: Ht 154.9 cm; Wt 103.4 kg
[~2020-05-03 13:43] MED LIST changes: -ACETAMINOPHEN 650MG PO PRIOR TO INFUSION PO PRN; +ACETAMINOPHEN TAB 650MG DOSE (2X325MG) PO ONE; -NS 1,000 ML IV SCH; -diphenhydrAMINE 25MG IV PRIOR TO INFUSION IV PRN; +diphenhydrAMINE 50MG/ML VIAL (J1200) IV ONE; +methylPREDNISolone 125MG 2ML VIAL IV ONE; -methylPREDNISolone 125MG 2ML VIAL IV PRN
[2020-05-03 13:45] VITALS: BP 134/83
[2020-05-03 14:35] VITALS: BP 136/68
[2020-05-03 14:36] LABS: MEAN CORPUSCULAR HEMOGLOBIN 29.9 pg (27.0-33.0); MEAN CORPUSCULAR HGB CONC 32.5 g/dl (32.0-36.5); PLATELET COUNT, AUTOMATED 333 10^3/uL (150-450); RED BLOOD COUNT 4.35 10^6/uL (4.00-5.40); WHITE BLOOD COUNT 12.4 10^3/uL (4.0-10.0)
[2020-05-03 14:50] VITALS: BP 132/72
[2020-05-03 15:04] LABS: ALBUMIN 3.8 GM/DL (3.2-5.2); ALT/SGPT 20 U/L (12-78); BILIRUBIN,TOTAL 0.2 MG/DL (0.2-1.0); BLOOD UREA NITROGEN 15 MG/DL (7-18); CALCIUM LEVEL 8.9 MG/DL (8.5-10.1); CARBON DIOXIDE LEVEL 23 MEQ/L (21-32); CHLORIDE LEVEL 112 MEQ/L (98-107); CREATININE FOR GFR 0.91 MG/DL (0.55-1.30); GLOMERULAR FILTRATION RATE > 60.0 (>60); GLUCOSE, FASTING 110 MG/DL (70-100); POTASSIUM SERUM 3.6 MEQ/L (3.5-5.1); SODIUM LEVEL 140 MEQ/L (136-145); TOTAL PROTEIN 6.9 GM/DL (6.4-8.2)
[2020-05-03 15:05] VITALS: BP 127/74
[2020-05-03 15:59] LABS: ERYTHROCYTE SEDIMENTATION RATE 13 mm/hr (0-20)
[2020-05-03 16:00] VITALS: BP 145/70
[2020-05-03 16:36] VITALS: BP 133/84
== END 2020-05-03 16:40 | disposition home or self-care (01) ==
LOC: M INFU 13:43
PROVIDERS: ATTEND Internal Medicine
DX: L40.59 Other psoriatic arthropathy (principal); Z88.0 Allergy status to penicillin; Z88.6 Allergy status to analgesic agent; Z91.010 Allergy to peanuts
CPT/HCPCS: 36592; 80053; 85027; 85652; 86140; 96365; 96366; Q5103

== ENCOUNTER 2020-08-23 13:30 | Outpatient (CLI) | payer OTHER ==
[~2020-08-23] VITALS: Ht 154.9 cm; Wt 103.4 kg
[~2020-08-23 13:30] MED LIST changes: +ACETAMINOPHEN 650MG ER TAB (TYLENOL ARTHRITIS) PO ONE; -ACETAMINOPHEN TAB 650MG DOSE (2X325MG) PO ONE; -AMIT10TA; +AMIT10TA7; +GLYB2.5T7 PO; -GLYB25TA PO; -diphenhydrAMINE 50MG/ML VIAL (J1200) IV ONE; +diphenhydrAMINE 50MG/ML VIAL (J1200) IV PRN; -methylPREDNISolone 125MG 2ML VIAL IV ONE; +methylPREDNISolone 125MG 2ML VIAL IV PRN
[2020-08-23 13:41] VITALS: BP 139/84
[2020-08-23 13:51] VITALS: BP 139/84
[2020-08-23 13:59] LABS: HEMATOCRIT 40.3 % (36.0-47.0); HEMOGLOBIN 13.4 g/dl (12.0-15.5); MEAN CORPUSCULAR HEMOGLOBIN 30.5 pg (27.0-33.0); MEAN CORPUSCULAR HGB CONC 33.3 g/dl (32.0-36.5); MEAN CORPUSCULAR VOLUME 91.8 fl (80.0-96.0); PLATELET COUNT, AUTOMATED 339 10^3/uL (150-450); RED BLOOD COUNT 4.39 10^6/uL (4.00-5.40); WHITE BLOOD COUNT 12.2 10^3/uL (4.0-10.0)
[2020-08-23 14:31] LABS: ERYTHROCYTE SEDIMENTATION RATE 21 mm/hr (0-20)
[2020-08-23 14:33] LABS: ALBUMIN 3.9 GM/DL (3.2-5.2); ALT/SGPT 32 U/L (12-78); BILIRUBIN,TOTAL 0.2 MG/DL (0.2-1.0); BLOOD UREA NITROGEN 15 MG/DL (7-18); C REACTIVE PROTEIN QUANTITATIV 0.59 MG/DL (0.00-0.30); CALCIUM LEVEL 9.3 MG/DL (8.5-10.1); CARBON DIOXIDE LEVEL 24 MEQ/L (21-32); CHLORIDE LEVEL 112 MEQ/L (98-107); CREATININE FOR GFR 0.83 MG/DL (0.55-1.30); GLOMERULAR FILTRATION RATE > 60.0 (>60); GLUCOSE, FASTING 94 MG/DL (70-100); POTASSIUM SERUM 3.6 MEQ/L (3.5-5.1); SODIUM LEVEL 142 MEQ/L (136-145); TOTAL PROTEIN 7.2 GM/DL (6.4-8.2)
[2020-08-23 14:55] VITALS: BP 132/80
[2020-08-23 15:10] VITALS: BP 128/74
[2020-08-23 15:58] VITALS: BP 131/75
[2020-08-23 16:44] VITALS: BP 132/73
== END 2020-08-23 16:45 | disposition home or self-care (01) ==
LOC: M INFU 13:30
PROVIDERS: ATTEND Internal Medicine
DX: L40.59 Other psoriatic arthropathy (principal); Z88.0 Allergy status to penicillin; Z88.6 Allergy status to analgesic agent; Z91.010 Allergy to peanuts
CPT/HCPCS: 36592; 80053; 85027; 85652; 86140; 96365; 96366; Q5103

== ENCOUNTER → 2020-09-03 | Outpatient (CLI) | payer OTHER ==
[~2020-09-03] MED LIST changes: -ACETAMINOPHEN 650MG ER TAB (TYLENOL ARTHRITIS) PO ONE; -INFLIXIMAB BIOSIMILAR 500 MG in NS 200 ML IV ONE; -diphenhydrAMINE 50MG/ML VIAL (J1200) IV PRN; -methylPREDNISolone 125MG 2ML VIAL IV PRN
[2020-09-03 12:48] LABS: FREE T3 2.5 PG/ML (2.2-4.0); FREE T4 0.79 NG/DL (0.76-1.46); THYROID PEROXIDASE ANTIBODY < 28.0 U/ML (<60.0)
[2020-09-04 10:08] LABS: THRYOGLOBULIN ANTIBODIES (ATA) < 1.0 IU/mL (0.0-0.9); THYROGLOBULIN QUANTITATIVE 15.2 ng/mL (1.5-38.5)
== END ==
LOC: M LAB 11:12
PROVIDERS: ATTEND Physician Assistant
DX: R53.83 Other fatigue (principal); G47.33 Obstructive sleep apnea (adult) (pediatric); R13.10 Dysphagia, unspecified

== ENCOUNTER → 2020-09-20 | Outpatient (CLI) | payer OTHER ==
[~2020-09-20] MED LIST changes: +E-Z-GAS II EFFERVESCENT PACKET (SODIUM BICARB./CITRIC ACID/SIMETHICONE) As Ordered ONE; +E-Z-HD 98% w/w 340GM SUSP BTL As Ordered ONE; +E-Z-PAQUE 96% w/w SUSP 176GM BTL As Ordered ONE
--- NOTE | 2020-09-20 15:52 | REP ---
INDICATION: GASTRO-ESOPHAGEAL REFLUX DISEASE W/O ESOPHAGITIS. COMPARISON: None TECHNIQUE: This procedure was performed by Swati Avendano [facility], under the direct supervision of Dr. Driscoll. Images were reviewed with Dr. Driscoll prior to dictation. Liquid barium and gas producing crystals were given in the erect position, as well as liquid barium in the prone oblique position in order to perform a double contrast esophagram examination. FINDINGS: A single view PA chest x-ray is submitted as a pipe maker film. The superior mediastinal structures are midline. The heart size is within normal limits. The lungs are clear. The oral and pharyngeal stages of deglutition were unremarkable. Esophageal transport is prompt and efficient and there is no evidence of esophagitis, stricture, or mucosal ring. There is no evidence of a hiatal hernia. There was no gastroesophageal reflux noted . IMPRESSION: Unremarkable esophagram. 0.2 minutes of fluoroscopy time was utilized for this procedure. Some fluoroscopic images are performed with last image hold technology. These images require no additional radiation. <Electronically signed by Swati Avendaon > 09/20/20 1430 <Electronically signed by Tay Driscoll > 09/20/20 0098
== END ==
LOC: M RAD 09:33
PROVIDERS: ATTEND Otolaryngology
DX: K21.9 Gastro-esophageal reflux disease without esophagitis (principal)

== ENCOUNTER 2020-10-18 13:30 | Outpatient (CLI) | payer OTHER ==
[~2020-10-18] VITALS: Ht 154.9 cm; Wt 103.4 kg
[~2020-10-18 13:30] MED LIST changes: +ACETAMINOPHEN TAB 650MG DOSE (2X325MG) PO PRN; -E-Z-GAS II EFFERVESCENT PACKET (SODIUM BICARB./CITRIC ACID/SIMETHICONE) As Ordered ONE; -E-Z-HD 98% w/w 340GM SUSP BTL As Ordered ONE; -E-Z-PAQUE 96% w/w SUSP 176GM BTL As Ordered ONE; +INFLIXIMAB BIOSIMILAR 500 MG in NS 200 ML IV ONE; +diphenhydrAMINE 50MG/ML VIAL (J1200) IV PRN; +methylPREDNISolone 125MG 2ML VIAL IV PRN
[2020-10-18 13:54] LABS: HEMATOCRIT 40.3 % (36.0-47.0); HEMOGLOBIN 13.1 g/dl (12.0-15.5); MEAN CORPUSCULAR HEMOGLOBIN 30.2 pg (27.0-33.0); MEAN CORPUSCULAR HGB CONC 32.5 g/dl (32.0-36.5); MEAN CORPUSCULAR VOLUME 92.9 fl (80.0-96.0); PLATELET COUNT, AUTOMATED 340 10^3/uL (150-450); RED BLOOD COUNT 4.34 10^6/uL (4.00-5.40); WHITE BLOOD COUNT 13.5 10^3/uL (4.0-10.0)
[2020-10-18 14:10] VITALS: BP 136/84
[2020-10-18 14:24] LABS: ALBUMIN 3.8 GM/DL (3.2-5.2); ALT/SGPT 38 U/L (12-78); BILIRUBIN,TOTAL 0.2 MG/DL (0.2-1.0); BLOOD UREA NITROGEN 16 MG/DL (7-18); C REACTIVE PROTEIN QUANTITATIV 0.34 MG/DL (0.00-0.30); CALCIUM LEVEL 9.1 MG/DL (8.5-10.1); CARBON DIOXIDE LEVEL 22 MEQ/L (21-32); CHLORIDE LEVEL 113 MEQ/L (98-107); CREATININE FOR GFR 0.77 MG/DL (0.55-1.30); GLOMERULAR FILTRATION RATE > 60.0 (>60); GLUCOSE, FASTING 84 MG/DL (70-100); POTASSIUM SERUM 3.5 MEQ/L (3.5-5.1); SODIUM LEVEL 142 MEQ/L (136-145)
[2020-10-18 14:25] VITALS: BP 132/88
[2020-10-18 14:29] LABS: ERYTHROCYTE SEDIMENTATION RATE 17 mm/hr (0-20)
[2020-10-18 15:09] VITALS: BP 139/72
== END 2020-10-18 15:20 | disposition home or self-care (01) ==
LOC: M INFU 13:30
PROVIDERS: ATTEND Internal Medicine
DX: L40.59 Other psoriatic arthropathy (principal); Z88.0 Allergy status to penicillin; Z88.6 Allergy status to analgesic agent; Z91.010 Allergy to peanuts
CPT/HCPCS: 36592; 80053; 85027; 85652; 86140; 96365; Q5103

== ENCOUNTER 2020-12-13 11:01 | Outpatient (CLI) | payer OTHER, SELFPAY ==
[~2020-12-13] VITALS: Ht 160 cm; Wt 103.4 kg
[2020-12-13 11:41] LABS: HEMATOCRIT 42.7 % (36.0-47.0); HEMOGLOBIN 13.5 g/dl (12.0-15.5); MEAN CORPUSCULAR HEMOGLOBIN 29.5 pg (27.0-33.0); MEAN CORPUSCULAR HGB CONC 31.6 g/dl (32.0-36.5); MEAN CORPUSCULAR VOLUME 93.4 fl (80.0-96.0); PLATELET COUNT, AUTOMATED 300 10^3/uL (150-450); RED BLOOD COUNT 4.57 10^6/uL (4.00-5.40)
[2020-12-13 12:03] VITALS: BP 128/68
[2020-12-13 12:08] LABS: ERYTHROCYTE SEDIMENTATION RATE 16 mm/hr (0-20)
[2020-12-13 12:11] LABS: ALBUMIN 3.6 GM/DL (3.2-5.2); ALT/SGPT 30 U/L (12-78); BILIRUBIN,TOTAL 0.2 MG/DL (0.2-1.0); BLOOD UREA NITROGEN 13 MG/DL (7-18); C REACTIVE PROTEIN QUANTITATIV 0.49 MG/DL (0.00-0.30); CALCIUM LEVEL 8.9 MG/DL (8.5-10.1); CARBON DIOXIDE LEVEL 23 MEQ/L (21-32); CHLORIDE LEVEL 112 MEQ/L (98-107); CREATININE FOR GFR 0.94 MG/DL (0.55-1.30); GLOMERULAR FILTRATION RATE > 60.0 (>60); GLUCOSE, FASTING 116 MG/DL (70-100); POTASSIUM SERUM 3.7 MEQ/L (3.5-5.1); SODIUM LEVEL 142 MEQ/L (136-145); TOTAL PROTEIN 7.1 GM/DL (6.4-8.2)
[2020-12-13 12:20] VITALS: BP 148/75
[2020-12-13 12:31] VITALS: BP 142/78
[2020-12-13 13:10] VITALS: BP 132/78
== END 2020-12-13 13:40 | disposition home or self-care (01) ==
LOC: M INFU 11:01
PROVIDERS: ATTEND Internal Medicine
DX: H05.242 Constant exophthalmos, left eye (principal); Z88.0 Allergy status to penicillin; Z88.6 Allergy status to analgesic agent; Z91.010 Allergy to peanuts
CPT/HCPCS: 36415; 80053; 85027; 85652; 86140; 96365; Q5103

== ENCOUNTER 2021-02-07 13:30 | Outpatient (CLI) | payer OTHER ==
[2021-02-07] VITALS (7 sets, daily range): BP systolic 122–158; BP diastolic 72–82
[~2021-02-07 13:30] MED LIST changes: +ACETAMINOPHEN TAB 650MG DOSE (2X325MG) PO PRN; +INFLIXIMAB BIOSIMILAR 500 MG in NS 200 ML IV ONE; +diphenhydrAMINE 25MG CAP PO PRN; +diphenhydrAMINE 50MG/ML VIAL (J1200) IV PRN; +methylPREDNISolone 125MG 2ML VIAL IV PRN
[2021-02-07 14:30] LABS: HEMATOCRIT 42.6 % (36.0-47.0); HEMOGLOBIN 13.7 g/dl (12.0-15.5); MEAN CORPUSCULAR HGB CONC 32.2 g/dl (32.0-36.5); MEAN CORPUSCULAR VOLUME 93.4 fl (80.0-96.0); PLATELET COUNT, AUTOMATED 329 10^3/uL (150-450); RED BLOOD COUNT 4.56 10^6/uL (4.00-5.40); WHITE BLOOD COUNT 14.3 10^3/uL (4.0-10.0)
[2021-02-07 14:46] LABS: ALBUMIN 3.5 GM/DL (3.2-5.2); ALT/SGPT 35 U/L (12-78); BILIRUBIN,TOTAL 0.2 MG/DL (0.2-1.0); BLOOD UREA NITROGEN 8 MG/DL (7-18); CARBON DIOXIDE LEVEL 26 MEQ/L (21-32); CHLORIDE LEVEL 110 MEQ/L (98-107); CREATININE FOR GFR 0.91 MG/DL (0.55-1.30); GLOMERULAR FILTRATION RATE > 60.0 (>60); GLUCOSE, FASTING 126 MG/DL (70-100); POTASSIUM SERUM 3.6 MEQ/L (3.5-5.1); SODIUM LEVEL 140 MEQ/L (136-145)
[2021-02-07 15:17] LABS: ERYTHROCYTE SEDIMENTATION RATE 9 mm/hr (0-20)
== END 2021-02-07 16:55 | disposition home or self-care (01) ==
LOC: M INFU 13:30
PROVIDERS: ATTEND Internal Medicine
DX: L40.59 Other psoriatic arthropathy (principal); Z88.0 Allergy status to penicillin; Z88.6 Allergy status to analgesic agent; Z91.010 Allergy to peanuts
CPT/HCPCS: 80053; 85027; 85652; 96365; 96366; Q5103

== ENCOUNTER → 2021-02-07 | Outpatient (CLI) | payer OTHER ==
[~2021-02-07] MED LIST changes: -ACETAMINOPHEN TAB 650MG DOSE (2X325MG) PO PRN; -INFLIXIMAB BIOSIMILAR 500 MG in NS 200 ML IV ONE; -diphenhydrAMINE 50MG/ML VIAL (J1200) IV PRN; -methylPREDNISolone 125MG 2ML VIAL IV PRN
[2021-02-07 14:31] LABS: BASO # 0.1 10^3/uL (0.0-0.2); BASO % 0.8 % (0.0-1.0); EOS # 0.6 10^3/uL (0.0-0.5); HEMATOCRIT 43.9 % (36.0-47.0); HEMOGLOBIN 13.8 g/dl (12.0-15.5); LYMPH # 3.3 10^3/uL (1.5-5.0); LYMPH % 24.1 % (24.0-44.0); MEAN CORPUSCULAR HEMOGLOBIN 29.6 pg (27.0-33.0); MEAN CORPUSCULAR HGB CONC 31.4 g/dl (32.0-36.5); MONO # 0.9 10^3/uL (0.0-0.8); MONO % 6.8 % (2.0-8.0); NEUTROPHILS # 8.8 10^3/uL (1.5-8.5); NEUTROPHILS % 63.5 % (36.0-66.0); PLATELET COUNT, AUTOMATED 334 10^3/uL (150-450); RED BLOOD COUNT 4.67 10^6/uL (4.00-5.40); WHITE BLOOD COUNT 13.8 10^3/uL (4.0-10.0)
== END ==
LOC: M LAB 13:35
PROVIDERS: ATTEND Psychiatry & Neurology Neurology
DX: R51.9 Headache, unspecified (principal)

== ENCOUNTER 2021-05-16 07:04 | Outpatient (CLI) | payer OTHER, MEDICAID ==
[~2021-05-16] VITALS: Ht 154.9 cm; Wt 103.6 kg
[2021-05-16] VITALS (8 sets, daily range): BP systolic 136–164; BP diastolic 76–92
[~2021-05-16 07:04] MED LIST changes: +NS 1,000 ML IV SCH; -diphenhydrAMINE 25MG CAP PO PRN
[2021-05-16] MEDS ORDERED: CLAR10CA3 PO (07:31)
[2021-05-16] MEDS ORDERED: ROSU10TA6 PO (07:31)
[2021-05-16] MEDS ORDERED: PRED10PA PO (07:32)
[2021-05-16 07:36] LABS: HEMATOCRIT 42.1 % (36.0-47.0); HEMOGLOBIN 13.5 g/dl (12.0-15.5); MEAN CORPUSCULAR HEMOGLOBIN 30.3 pg (27.0-33.0); MEAN CORPUSCULAR HGB CONC 32.1 g/dl (32.0-36.5); MEAN CORPUSCULAR VOLUME 94.4 fl (80.0-96.0); PLATELET COUNT, AUTOMATED 324 10^3/uL (150-450); RED BLOOD COUNT 4.46 10^6/uL (4.00-5.40); WHITE BLOOD COUNT 19.7 10^3/uL (4.0-10.0)
[2021-05-16 08:00] LABS: ALBUMIN 3.5 GM/DL (3.2-5.2); ALT/SGPT 31 U/L (12-78); BILIRUBIN,TOTAL 0.2 MG/DL (0.2-1.0); BLOOD UREA NITROGEN 18 MG/DL (7-18); CALCIUM LEVEL 9.2 MG/DL (8.5-10.1); CARBON DIOXIDE LEVEL 26 MEQ/L (21-32); CHLORIDE LEVEL 111 MEQ/L (98-107); CREATININE FOR GFR 0.96 MG/DL (0.55-1.30); GLOMERULAR FILTRATION RATE > 60.0 (>60); GLUCOSE, FASTING 96 MG/DL (70-100); POTASSIUM SERUM 3.5 MEQ/L (3.5-5.1); SODIUM LEVEL 143 MEQ/L (136-145); TOTAL PROTEIN 6.8 GM/DL (6.4-8.2)
[2021-05-16 08:15] LABS: ERYTHROCYTE SEDIMENTATION RATE 16 mm/hr (0-20)
== END 2021-05-16 10:30 | disposition home or self-care (01) ==
LOC: M INFU 07:04
PROVIDERS: ATTEND Internal Medicine
DX: L40.59 Other psoriatic arthropathy (principal); Z88.0 Allergy status to penicillin; Z88.6 Allergy status to analgesic agent; Z91.010 Allergy to peanuts
CPT/HCPCS: 36592; 80053; 85027; 85652; 86140; 96365; 96366; Q5103

== ENCOUNTER → 2021-07-07 | Outpatient (REF) ==
[~2021-07-07] MED LIST changes: -ACETAMINOPHEN TAB 650MG DOSE (2X325MG) PO PRN; +CLAR10CA3 PO; -INFLIXIMAB BIOSIMILAR 500 MG in NS 200 ML IV ONE; -NS 1,000 ML IV SCH; +PRED10PA PO; +ROSU10TA6 PO; -diphenhydrAMINE 50MG/ML VIAL (J1200) IV PRN; -methylPREDNISolone 125MG 2ML VIAL IV PRN
== END ==
LOC: M LABSMTC 13:17
PROVIDERS: ATTEND Pediatrics
DX: Z20.822 Contact with and (suspected) exposure to COVID-19 (principal)

== ENCOUNTER 2021-08-08 12:32 | Outpatient (CLI) | payer OTHER ==
[~2021-08-08] VITALS: Ht 154.9 cm; Wt 103.6 kg
[2021-08-08 12:45] VITALS: BP 140/81
[2021-08-08] MEDS ORDERED: INFLIXIMAB BIOSIMILAR 500 MG in NS 200 ML IV ONE (13:00)
[2021-08-08] MEDS ORDERED: ACETAMINOPHEN TAB 650MG DOSE (2X325MG) PO PRN (13:00)
[2021-08-08] MEDS ORDERED: methylPREDNISolone 125MG 2ML VIAL IV PRN (13:00)
[2021-08-08] MEDS ORDERED: diphenhydrAMINE 50MG/ML VIAL (J1200) IV PRN (13:00)
[2021-08-08] MEDS ORDERED: NS 1,000 ML IV SCH (13:00)
[2021-08-08 13:20] LABS: HEMATOCRIT 39.2 % (36.0-47.0); HEMOGLOBIN 12.7 g/dl (12.0-15.5); MEAN CORPUSCULAR HEMOGLOBIN 30.2 pg (27.0-33.0); MEAN CORPUSCULAR HGB CONC 32.4 g/dl (32.0-36.5); MEAN CORPUSCULAR VOLUME 93.3 fl (80.0-96.0); PLATELET COUNT, AUTOMATED 299 10^3/uL (150-450); WHITE BLOOD COUNT 10.5 10^3/uL (4.0-10.0)
[2021-08-08 13:49] LABS: ALBUMIN 3.2 GM/DL (3.2-5.2); ALT/SGPT 32 U/L (12-78); BILIRUBIN,TOTAL 0.2 MG/DL (0.2-1.0); BLOOD UREA NITROGEN 13 MG/DL (7-18); CALCIUM LEVEL 8.4 MG/DL (8.5-10.1); CARBON DIOXIDE LEVEL 27 MEQ/L (21-32); CHLORIDE LEVEL 111 MEQ/L (98-107); CREATININE FOR GFR 0.87 MG/DL (0.55-1.30); GLOMERULAR FILTRATION RATE > 60.0 (>60); GLUCOSE, FASTING 106 MG/DL (70-100); POTASSIUM SERUM 3.6 MEQ/L (3.5-5.1); SODIUM LEVEL 142 MEQ/L (136-145)
[2021-08-08 14:04] LABS: ERYTHROCYTE SEDIMENTATION RATE 13 mm/hr (0-20)
[2021-08-08 14:15] VITALS: BP 133/76
[2021-08-08 14:45] VITALS: BP 128/68
[2021-08-08 15:45] VITALS: BP 136/74
[2021-08-08 16:15] VITALS: BP 132/79
== END 2021-08-08 16:15 | disposition home or self-care (01) ==
LOC: M INFU 12:32
PROVIDERS: ATTEND Internal Medicine
DX: L40.59 Other psoriatic arthropathy (principal); Z88.0 Allergy status to penicillin; Z88.6 Allergy status to analgesic agent; Z91.010 Allergy to peanuts
CPT/HCPCS: 36592; 80053; 85027; 85652; 86140; 96413; 96415; Q5103

== ENCOUNTER → 2021-10-17 | Outpatient (REF) | payer OTHER | LOC: M WUC 20:15 | PROVIDERS: ATTEND Physician Assistant | DX: R30.0 Dysuria (principal) ==

== ENCOUNTER 2021-10-24 07:48 | Outpatient (CLI) | payer OTHER ==
[~2021-10-24] VITALS: Ht 165.1 cm; Wt 103.6 kg
[2021-10-24 08:03] VITALS: BP 141/77
[2021-10-24 08:22] LABS: HEMATOCRIT 45.1 % (36.0-47.0); HEMOGLOBIN 14.6 g/dl (12.0-15.5); MEAN CORPUSCULAR HEMOGLOBIN 30.1 pg (27.0-33.0); MEAN CORPUSCULAR HGB CONC 32.4 g/dl (32.0-36.5); PLATELET COUNT, AUTOMATED 317 10^3/uL (150-450); RED BLOOD COUNT 4.85 10^6/uL (4.00-5.40); WHITE BLOOD COUNT 10.7 10^3/uL (4.0-10.0)
[2021-10-24] MEDS ORDERED: INFLIXIMAB BIOSIMILAR 800 MG in NS 170 ML IV ONE (08:30)
[2021-10-24] MEDS ORDERED: ACETAMINOPHEN TAB 650MG DOSE (2X325MG) PO PRN (08:30)
[2021-10-24] MEDS ORDERED: methylPREDNISolone 125MG 2ML VIAL IV PRN (08:30)
[2021-10-24] MEDS ORDERED: NS 1,000 ML IV SCH (08:30)
[2021-10-24 08:46] LABS: ALBUMIN 3.7 GM/DL (3.2-5.2); ALT/SGPT 35 U/L (12-78); BILIRUBIN,TOTAL 0.2 MG/DL (0.2-1.0); BLOOD UREA NITROGEN 15 MG/DL (7-18); C REACTIVE PROTEIN QUANTITATIV 0.62 MG/DL (0.00-0.30); CALCIUM LEVEL 9.7 MG/DL (8.5-10.1); CARBON DIOXIDE LEVEL 23 MEQ/L (21-32); CHLORIDE LEVEL 113 MEQ/L (98-107); CREATININE FOR GFR 0.92 MG/DL (0.55-1.30); GLOMERULAR FILTRATION RATE > 60.0 (>60); GLUCOSE, FASTING 95 MG/DL (70-100); SODIUM LEVEL 143 MEQ/L (136-145); TOTAL PROTEIN 7.3 GM/DL (6.4-8.2)
[2021-10-24 09:15] VITALS: BP 164/84
[2021-10-24 09:30] VITALS: BP 172/89
[2021-10-24 09:45] VITALS: BP 130/60
[2021-10-24 10:15] VITALS: BP 112/57
[2021-10-24 10:34] LABS: ERYTHROCYTE SEDIMENTATION RATE 14 mm/hr (0-20)
[2021-10-24 10:44] VITALS: BP 121/57
== END 2021-10-24 16:05 | disposition home or self-care (01) ==
LOC: M INFU 07:48
PROVIDERS: ATTEND Internal Medicine
DX: L40.52 Psoriatic arthritis mutilans (principal); Z91.010 Allergy to peanuts; Z88.0 Allergy status to penicillin; Z88.5 Allergy status to narcotic agent
CPT/HCPCS: 36415; 80053; 85027; 85652; 86140; 96413; 96415; Q5103

== ENCOUNTER → 2021-10-24 | Outpatient (CLI) | payer OTHER | LOC: M RAD 16:20 | PROVIDERS: ATTEND Physician Assistant | DX: M79.672 Pain in left foot (principal) ==

== ENCOUNTER 2022-01-09 13:05 | Outpatient (CLI) | payer OTHER ==
[~2022-01-09] VITALS: Ht 154.9 cm; Wt 100.0 kg
[~2022-01-09 13:05] MED LIST changes: +ACETAMINOPHEN TAB 650MG DOSE (2X325MG) PO PRN; +INFLIXIMAB BIOSIMILAR 800 MG in NS 170 ML IV ONE; +NS 1,000 ML IV SCH; +methylPREDNISolone 125MG 2ML VIAL IV PRN
[2022-01-09 13:10] VITALS: BP 142/78
[2022-01-09 13:37] LABS: HEMATOCRIT 41.7 % (36.0-47.0); HEMOGLOBIN 13.5 g/dl (12.0-15.5); MEAN CORPUSCULAR HEMOGLOBIN 30.1 pg (27.0-33.0); MEAN CORPUSCULAR HGB CONC 32.4 g/dl (32.0-36.5); MEAN CORPUSCULAR VOLUME 92.9 fl (80.0-96.0); PLATELET COUNT, AUTOMATED 311 10^3/uL (150-450); RED BLOOD COUNT 4.49 10^6/uL (4.00-5.40); WHITE BLOOD COUNT 10.1 10^3/uL (4.0-10.0)
[2022-01-09 14:02] LABS: ALBUMIN 3.3 GM/DL (3.2-5.2); ALT/SGPT 31 U/L (12-78); BILIRUBIN,TOTAL 0.4 MG/DL (0.2-1.0); BLOOD UREA NITROGEN 13 MG/DL (7-18); C REACTIVE PROTEIN QUANTITATIV 0.38 MG/DL (0.00-0.30); CARBON DIOXIDE LEVEL 23 MEQ/L (21-32); CHLORIDE LEVEL 112 MEQ/L (98-107); CREATININE FOR GFR 0.96 MG/DL (0.55-1.30); GLOMERULAR FILTRATION RATE > 60.0 (>60); GLUCOSE, FASTING 91 MG/DL (70-100); POTASSIUM SERUM 3.7 MEQ/L (3.5-5.1); SODIUM LEVEL 140 MEQ/L (136-145); TOTAL PROTEIN 6.4 GM/DL (6.4-8.2)
[2022-01-09 14:15] VITALS: BP 137/80
[2022-01-09 14:45] VITALS: BP 141/88
[2022-01-09 14:54] LABS: ERYTHROCYTE SEDIMENTATION RATE 12 mm/hr (0-20)
[2022-01-09 15:15] VITALS: BP 124/79
[2022-01-09 15:43] VITALS: BP 123/78
[2022-01-09 16:15] VITALS: BP 139/84
== END 2022-01-09 16:15 | disposition home or self-care (01) ==
LOC: M INFU 13:05
PROVIDERS: ATTEND Internal Medicine
DX: L40.52 Psoriatic arthritis mutilans (principal); Z88.0 Allergy status to penicillin; Z88.5 Allergy status to narcotic agent; Z91.010 Allergy to peanuts
CPT/HCPCS: 36592; 80053; 85027; 85652; 86140; 96413; 96415; Q5103

== ENCOUNTER → 2022-01-22 | Outpatient (CLI) | payer OTHER, MEDICAID ==
[~2022-01-22] MED LIST changes: -ACETAMINOPHEN TAB 650MG DOSE (2X325MG) PO PRN; -INFLIXIMAB BIOSIMILAR 800 MG in NS 170 ML IV ONE; -NS 1,000 ML IV SCH; -methylPREDNISolone 125MG 2ML VIAL IV PRN
[2022-01-22 16:30] LABS: INR 0.91; PARTIAL THROMBOPLASTIN TIME 29.9 SECONDS (25.9-37.0); PROTHROMBIN TIME 12.7 SECONDS (12.7-14.5)
[2022-01-22 17:01] LABS: CHOLESTEROL RISK RATIO 2.52 (<5); THYROID STIMULATING HORMONE 1.78 uIU/ML (0.358-3.740)
== END ==
LOC: M WUC 13:04
PROVIDERS: ATTEND Internal Medicine Hematology
DX: N92.1 Excessive and frequent menstruation with irregular cycle (principal)

== ENCOUNTER 2022-03-06 13:15 | Outpatient (CLI) | payer OTHER ==
[~2022-03-06] VITALS: Ht 154.9 cm; Wt 100.0 kg
[2022-03-06 13:15] VITALS: BP 145/85
[~2022-03-06 13:15] MED LIST changes: +ACETAMINOPHEN TAB 650MG DOSE (2X325MG) PO PRN
[2022-03-06] MEDS ORDERED: methylPREDNISolone 125MG 2ML VIAL IV PRN (13:30)
[2022-03-06] MEDS ORDERED: ACETAMINOPHEN TAB 650MG DOSE (2X325MG) PO PRN (13:30)
[2022-03-06] MEDS ORDERED: INFLIXIMAB BIOSIMILAR 800 MG in NS 170 ML IV ONE (13:30)
[2022-03-06] MEDS ORDERED: diphenhydrAMINE 50MG/ML VIAL (J1200) IV PRN (13:30)
[2022-03-06] MEDS ORDERED: NS 1,000 ML IV SCH (13:30)
[2022-03-06 13:48] LABS: HEMATOCRIT 40.8 % (36.0-47.0); HEMOGLOBIN 13.4 g/dl (12.0-15.5); MEAN CORPUSCULAR HEMOGLOBIN 30.8 pg (27.0-33.0); MEAN CORPUSCULAR HGB CONC 32.8 g/dl (32.0-36.5); MEAN CORPUSCULAR VOLUME 93.8 fl (80.0-96.0); PLATELET COUNT, AUTOMATED 297 10^3/uL (150-450); RED BLOOD COUNT 4.35 10^6/uL (4.00-5.40); WHITE BLOOD COUNT 12.9 10^3/uL (4.0-10.0)
[2022-03-06 14:00] VITALS: BP 136/76
[2022-03-06 14:24] LABS: ERYTHROCYTE SEDIMENTATION RATE 15 mm/hr (0-20)
[2022-03-06 14:30] LABS: ALBUMIN 3.3 GM/DL (3.2-5.2); ALT/SGPT 23 U/L (12-78); BILIRUBIN,TOTAL 0.2 MG/DL (0.2-1.0); BLOOD UREA NITROGEN 15 MG/DL (7-18); C REACTIVE PROTEIN QUANTITATIV 0.34 MG/DL (0.00-0.30); CALCIUM LEVEL 8.6 MG/DL (8.5-10.1); CARBON DIOXIDE LEVEL 22 MEQ/L (21-32); CHLORIDE LEVEL 110 MEQ/L (98-107); CREATININE FOR GFR 0.88 MG/DL (0.55-1.30); GLOMERULAR FILTRATION RATE > 60.0 (>58); GLUCOSE, FASTING 92 MG/DL (70-100); POTASSIUM SERUM 3.4 MEQ/L (3.5-5.1); SODIUM LEVEL 139 MEQ/L (136-145); TOTAL PROTEIN 6.5 GM/DL (6.4-8.2)
[2022-03-06 15:00] VITALS: BP 138/87
[2022-03-06 15:30] VITALS: BP 133/78
[2022-03-06 16:20] VITALS: BP 152/81
== END 2022-03-06 16:20 | disposition home or self-care (01) ==
LOC: M INFU 13:15
PROVIDERS: ATTEND Internal Medicine
DX: L40.52 Psoriatic arthritis mutilans (principal); Z88.0 Allergy status to penicillin; Z88.5 Allergy status to narcotic agent; Z91.010 Allergy to peanuts
CPT/HCPCS: 36592; 80053; 85027; 85652; 86140; 96413; 96415; Q5103

== ENCOUNTER → 2022-04-09 | Outpatient (CLI) | payer OTHER ==
[~2022-04-09] MED LIST changes: -ACETAMINOPHEN TAB 650MG DOSE (2X325MG) PO PRN
[2022-04-09 12:35] LABS: ALBUMIN 3.2 GM/DL (3.2-5.2); ALT/SGPT 20 U/L (12-78); BILIRUBIN,TOTAL 0.3 MG/DL (0.2-1.0); BLOOD UREA NITROGEN 11 MG/DL (7-18); CALCIUM LEVEL 9.1 MG/DL (8.5-10.1); CARBON DIOXIDE LEVEL 29 MEQ/L (21-32); CHLORIDE LEVEL 106 MEQ/L (98-107); CHOLESTEROL LEVEL 139 MG/DL (<200); CHOLESTEROL RISK RATIO 2.482 (<5); CREATININE FOR GFR 0.94 MG/DL (0.55-1.30); GLOMERULAR FILTRATION RATE > 60.0 (>58); GLUCOSE, FASTING 91 MG/DL (70-100); HDL CHOLESTEROL 56 MG/DL (>40); LDL CHOLESTEROL 56 MG/DL (<100); NON-HDL-C 83 MG/DL; POTASSIUM SERUM 3.7 MEQ/L (3.5-5.1); SODIUM LEVEL 139 MEQ/L (136-145); TOTAL PROTEIN 6.6 GM/DL (6.4-8.2); TRIGLYCERIDES LEVEL 134 MG/DL (<150)
[2022-04-09 13:15] LABS: HEMOGLOBIN A1c 5.5 %
== END ==
LOC: M WUC 09:07
PROVIDERS: ATTEND Physician Assistant
DX: E78.5 Hyperlipidemia, unspecified (principal); R73.03 Prediabetes

== ENCOUNTER 2022-05-29 15:20 | Outpatient (CLI) | payer OTHER ==
[2022-05-29 15:20] VITALS: BP 132/80
[~2022-05-29 15:20] MED LIST changes: +diphenhydrAMINE 50MG/ML VIAL IV PRN; +methylPREDNISolone 125MG 2ML VIAL IV PRN
[2022-05-29] MEDS ORDERED: ACETAMINOPHEN TAB 650MG DOSE (2X325MG) PO PRN (15:30)
[2022-05-29] MEDS ORDERED: INFLIXIMAB BIOSIMILAR 800 MG in NS 170 ML IV ONE (15:30)
[2022-05-29] MEDS ORDERED: NS 1,000 ML IV SCH (15:30)
[2022-05-29 16:09] LABS: HEMATOCRIT 41.7 % (36.0-47.0); HEMOGLOBIN 13.9 g/dl (12.0-15.5); MEAN CORPUSCULAR HEMOGLOBIN 31.1 pg (27.0-33.0); MEAN CORPUSCULAR HGB CONC 33.3 g/dl (32.0-36.5); MEAN CORPUSCULAR VOLUME 93.3 fl (80.0-96.0); PLATELET COUNT, AUTOMATED 289 10^3/uL (150-450); RED BLOOD COUNT 4.47 10^6/uL (4.00-5.40); WHITE BLOOD COUNT 16.4 10^3/uL (4.0-10.0)
[2022-05-29 16:15] VITALS: BP 128/60
[2022-05-29 16:23] LABS: ERYTHROCYTE SEDIMENTATION RATE 17 mm/hr (0-20)
[2022-05-29 16:38] LABS: ALBUMIN 3.6 G/DL (3.2-5.2); ALKALINE PHOSPHATASE 73 U/L (46-116); ALT/SGPT 12 U/L (7.0-40); AST/SGOT 19 U/L (<34); BILIRUBIN,TOTAL 0.2 MG/DL (0.3-1.2); BLOOD UREA NITROGEN 17 MG/DL (9-23); CALCIUM LEVEL 8.9 MG/DL (8.5-10.1); CARBON DIOXIDE LEVEL 21 MMOL/L (20-31); CHLORIDE LEVEL 109 MMOL/L (98-107); CREATININE FOR GFR 0.92 MG/DL (0.55-1.30); GLOMERULAR FILTRATION RATE > 60.0 (>58); GLUCOSE, FASTING 138 MG/DL (60-100); POTASSIUM SERUM 4.2 MMOL/L (3.5-5.1); SODIUM LEVEL 139 MMOL/L (136-145); TOTAL PROTEIN 6.7 G/DL (5.7-8.2)
[2022-05-29 17:10] VITALS: BP 155/87
[2022-05-29 17:45] VITALS: BP 138/88
[2022-05-29 18:15] VITALS: BP 144/91
== END 2022-05-29 18:15 | disposition home or self-care (01) ==
LOC: M INFU 15:20
PROVIDERS: ATTEND Internal Medicine
DX: L40.59 Other psoriatic arthropathy (principal); H20.9 Unspecified iridocyclitis; Z88.0 Allergy status to penicillin; Z88.5 Allergy status to narcotic agent
CPT/HCPCS: 80053; 80230; 82397; 85027; 85652; 86140; 96375; 96413; J1200; J2930; Q5103

== ENCOUNTER → 2023-05-26 | Outpatient (CLI) | payer OTHER, MEDICAID ==
[~2023-05-26] MED LIST changes: -diphenhydrAMINE 50MG/ML VIAL IV PRN; -methylPREDNISolone 125MG 2ML VIAL IV PRN
[2023-05-26 16:38] LABS: BASO # 0.2 10^3/uL (0.0-0.2); BASO % 1.1 % (0.0-1.0); EOS # 0.7 10^3/uL (0.0-0.5); EOS % 4.9 % (0.0-3.0); HEMOGLOBIN 14.4 g/dl (12.0-15.5); LYMPH # 3.3 10^3/uL (1.5-5.0); LYMPH % 24.3 % (24.0-44.0); MEAN CORPUSCULAR HEMOGLOBIN 30.6 pg (27.0-33.0); MEAN CORPUSCULAR VOLUME 95.5 fl (80.0-96.0); MONO # 0.7 10^3/uL (0.0-0.8); MONO % 4.7 % (2.0-8.0); NEUTROPHILS # 8.8 10^3/uL (1.5-8.5); NEUTROPHILS % 64.3 % (36.0-66.0); PLATELET COUNT, AUTOMATED 390 10^3/uL (150-450); RED BLOOD COUNT 4.71 10^6/uL (4.00-5.40); WHITE BLOOD COUNT 13.7 10^3/uL (4.0-10.0)
[2023-05-26 16:44] LABS: ERYTHROCYTE SEDIMENTATION RATE 27 mm/hr (0-20)
[2023-05-26 17:07] LABS: ALBUMIN 3.5 G/DL (3.2-5.2); ALKALINE PHOSPHATASE 82 U/L (46-116); ALT/SGPT 14 U/L (7.0-40); AST/SGOT 9 U/L (<34); BILIRUBIN,TOTAL 0.2 MG/DL (0.3-1.2); BLOOD UREA NITROGEN 14 MG/DL (9-23); CALCIUM LEVEL 8.9 MG/DL (8.5-10.1); CARBON DIOXIDE LEVEL 21 MMOL/L (20-31); CHLORIDE LEVEL 113 MMOL/L (98-107); CREATININE FOR GFR 0.95 MG/DL (0.55-1.30); GLOMERULAR FILTRATION RATE > 60.0 (>58); GLUCOSE, FASTING 101 MG/DL (60-100); POTASSIUM SERUM 4.2 MMOL/L (3.5-5.1); SODIUM LEVEL 141 MMOL/L (136-145); TOTAL PROTEIN 6.5 G/DL (5.7-8.2)
== END ==
LOC: M WUC 11:30
PROVIDERS: ATTEND Nurse Practitioner Family
DX: L40.59 Other psoriatic arthropathy (principal); Z79.899 Other long term (current) drug therapy

== ENCOUNTER → 2023-07-01 | Outpatient (REF) | payer OTHER, MEDICAID ==
[2023-07-01 17:21] LABS: BASO # 0.1 10^3/uL (0.0-0.2); BASO % 0.9 % (0.0-1.0); EOS # 0.6 10^3/uL (0.0-0.5); EOS % 4.4 % (0.0-3.0); HEMATOCRIT 41.5 % (36.0-47.0); HEMOGLOBIN 13.6 g/dl (12.0-15.5); LYMPH # 3.6 10^3/uL (1.5-5.0); LYMPH % 26.7 % (24.0-44.0); MEAN CORPUSCULAR HEMOGLOBIN 30.9 pg (27.0-33.0); MEAN CORPUSCULAR HGB CONC 32.8 g/dl (32.0-36.5); MEAN CORPUSCULAR VOLUME 94.3 fl (80.0-96.0); MONO # 0.8 10^3/uL (0.0-0.8); MONO % 5.8 % (2.0-8.0); NEUTROPHILS # 8.3 10^3/uL (1.5-8.5); NEUTROPHILS % 61.5 % (36.0-66.0); PLATELET COUNT, AUTOMATED 385 10^3/uL (150-450); WHITE BLOOD COUNT 13.6 10^3/uL (4.0-10.0)
[2023-07-01 17:48] LABS: ALBUMIN 3.6 G/DL (3.2-5.2); ALKALINE PHOSPHATASE 117 U/L (46-116); ALT/SGPT 20 U/L (7.0-40); AST/SGOT 14 U/L (<34); BILIRUBIN,TOTAL 0.2 MG/DL (0.3-1.2); BLOOD UREA NITROGEN 14 MG/DL (9-23); CALCIUM LEVEL 9.4 MG/DL (8.5-10.1); CARBON DIOXIDE LEVEL 24 MMOL/L (20-31); CHLORIDE LEVEL 109 MMOL/L (98-107); GLOMERULAR FILTRATION RATE > 60.0 (>58); GLUCOSE, FASTING 88 MG/DL (60-100); POTASSIUM SERUM 4.2 MMOL/L (3.5-5.1); SODIUM LEVEL 142 MMOL/L (136-145); TOTAL PROTEIN 6.7 G/DL (5.7-8.2)
== END ==
LOC: M LABWUC 16:26
PROVIDERS: ATTEND Psychiatry & Neurology Neurology
DX: R51.9 Headache, unspecified (principal)

== ENCOUNTER → 2023-09-24 | Outpatient (REF) | payer OTHER, MEDICAID ==
[2023-09-24 17:04] LABS: HEMATOCRIT 45.4 % (36.0-47.0); HEMOGLOBIN 14.5 g/dl (12.0-15.5); MEAN CORPUSCULAR HEMOGLOBIN 31.3 pg (27.0-33.0); MEAN CORPUSCULAR HGB CONC 31.9 g/dl (32.0-36.5); MEAN CORPUSCULAR VOLUME 97.8 fl (80.0-96.0); PLATELET COUNT, AUTOMATED 327 10^3/uL (150-450); RED BLOOD COUNT 4.64 10^6/uL (4.00-5.40); WHITE BLOOD COUNT 12.5 10^3/uL (4.0-10.0)
[2023-09-24 18:02] LABS: ALBUMIN 3.7 G/DL (3.2-5.2); ALKALINE PHOSPHATASE 101 U/L (46-116); ALT/SGPT 22 U/L (7.0-40); AST/SGOT 16 U/L (<34); BILIRUBIN,TOTAL 0.2 MG/DL (0.3-1.2); BLOOD UREA NITROGEN 17 MG/DL (9-23); CALCIUM LEVEL 9.4 MG/DL (8.5-10.1); CARBON DIOXIDE LEVEL 28 MMOL/L (20-31); CHLORIDE LEVEL 110 MMOL/L (98-107); CHOLESTEROL LEVEL 153 MG/DL (<200); CHOLESTEROL RISK RATIO 2.94 (<5); CREATININE FOR GFR 0.88 MG/DL (0.55-1.30); GLOMERULAR FILTRATION RATE > 60.0 (>58); GLUCOSE, FASTING 117 MG/DL (60-100); LDL CHOLESTEROL 69.6 MG/DL (<100); POTASSIUM SERUM 4.4 MMOL/L (3.5-5.1); SODIUM LEVEL 142 MMOL/L (136-145); TOTAL PROTEIN 6.3 G/DL (5.7-8.2); TRIGLYCERIDES LEVEL 157 MG/DL (<150)
== END ==
LOC: M LABWUC 16:35
PROVIDERS: ATTEND Physician Assistant
DX: R73.03 Prediabetes (principal); E78.5 Hyperlipidemia, unspecified

== ENCOUNTER → 2023-11-18 | Outpatient (CLI) | payer OTHER, MEDICAID ==
[~2023-11-18] MED LIST changes: -ROSU10TA6 PO; +ROSU10TA61 PO
[2023-11-18 19:26] LABS: BASO # 0.1 10^3/uL (0.0-0.2); BASO % 0.9 % (0.0-1.0); EOS # 0.6 10^3/uL (0.0-0.5); EOS % 4.4 % (0.0-3.0); HEMATOCRIT 42.8 % (36.0-47.0); HEMOGLOBIN 13.9 g/dl (12.0-15.5); LYMPH # 3.8 10^3/uL (1.5-5.0); LYMPH % 27.5 % (24.0-44.0); MEAN CORPUSCULAR HEMOGLOBIN 31.2 pg (27.0-33.0); MEAN CORPUSCULAR HGB CONC 32.5 g/dl (32.0-36.5); MONO # 0.8 10^3/uL (0.0-0.8); MONO % 5.6 % (2.0-8.0); NEUTROPHILS # 8.5 10^3/uL (1.5-8.5); NEUTROPHILS % 61.3 % (36.0-66.0); PLATELET COUNT, AUTOMATED 361 10^3/uL (150-450); RED BLOOD COUNT 4.46 10^6/uL (4.00-5.40); WHITE BLOOD COUNT 13.8 10^3/uL (4.0-10.0)
[2023-11-18 19:54] LABS: ALBUMIN 3.8 G/DL (3.2-5.2); ALKALINE PHOSPHATASE 92 U/L (46-116); ALT/SGPT 12 U/L (7.0-40); AST/SGOT < 8 U/L (<34); BILIRUBIN,TOTAL 0.3 MG/DL (0.3-1.2); BLOOD UREA NITROGEN 15 MG/DL (9-23); CALCIUM LEVEL 9.3 MG/DL (8.5-10.1); CARBON DIOXIDE LEVEL 28 MMOL/L (20-31); CHLORIDE LEVEL 109 MMOL/L (98-107); CREATININE FOR GFR 0.88 MG/DL (0.55-1.30); GLOMERULAR FILTRATION RATE > 60.0 (>58); GLUCOSE, FASTING 101 MG/DL (60-100); POTASSIUM SERUM 4.1 MMOL/L (3.5-5.1); SODIUM LEVEL 143 MMOL/L (136-145); TOTAL PROTEIN 6.5 G/DL (5.7-8.2)
[2023-11-18 19:56] LABS: THYROID STIMULATING HORMONE 1.979 uIU/ML (0.55-4.78)
== END ==
LOC: M WUC 15:51
PROVIDERS: ATTEND Physician Assistant
DX: R00.2 Palpitations (principal); R07.89 Other chest pain; R61 Generalized hyperhidrosis

== ENCOUNTER → 2024-10-06 | Outpatient (CLI) | payer OTHER, MEDICAID, BC ==
[~2024-10-06] MED LIST changes: +TOPI-257; -TOPI100T9
[2024-10-06 13:57] LABS: HEMATOCRIT 43.7 % (36.0-47.0); HEMOGLOBIN 13.6 g/dl (12.0-15.5); MEAN CORPUSCULAR HGB CONC 31.1 g/dl (32.0-36.5); MEAN CORPUSCULAR VOLUME 96.5 fl (80.0-96.0); PLATELET COUNT, AUTOMATED 355 10^3/uL (150-450); RED BLOOD COUNT 4.53 10^6/uL (4.00-5.40)
[2024-10-06 14:01] LABS: ALBUMIN 3.5 G/DL (3.2-5.2); BILIRUBIN,TOTAL 0.4 MG/DL (0.3-1.2); CALCIUM LEVEL 9.2 MG/DL (8.5-10.1); CHOLESTEROL RISK RATIO 2.75 (<5); CREATININE FOR GFR 0.87 MG/DL (0.55-1.30); GLOMERULAR FILTRATION RATE 85.3 (>58); HDL CHOLESTEROL 60.7 MG/DL (>40); LDL CHOLESTEROL 68.7 MG/DL (<100); NON-HDL-C 106.3 MG/DL; TOTAL PROTEIN 6.4 G/DL (5.7-8.2)
[2024-10-06 14:03] LABS: THYROID STIMULATING HORMONE 2.02 uIU/ML (0.55-4.78)
[2024-10-06 14:45] LABS: HEMOGLOBIN A1c 5.5 % (4.0-6.0)
[2024-10-09 06:47] LABS: WHITE BLOOD COUNT 17.9 10^3/uL (4.0-10.0)
== END ==
LOC: M WUC 08:23
PROVIDERS: ATTEND Physician Assistant
DX: E78.5 Hyperlipidemia, unspecified (principal); R73.03 Prediabetes; F90.0 Attention-deficit hyperactivity disorder, predominantly inattentive type